=== PATIENT | male | born 1985 | race Caucasian/White ===

== ENCOUNTER 2016-07-02 06:36 | Inpatient (IN) | payer MEDICAID, OTHER ==
[~2016-07-02] VITALS: Ht 175.3 cm; Wt 78.9 kg
[2016-07-02] MEDS ORDERED: ESCI10TA2 PO (08:49)
[2016-07-02] MEDS ORDERED: OLAN5TAB PO (08:49)
[2016-07-02] MEDS ORDERED: PROP1TAB29 PO (08:49)
[2016-07-02] MEDS ORDERED: DEPA500T2 PO (08:49)
[2016-07-02] MEDS: NICOTINE 21MG/24HR 1 EA TRANSDERMAL TD SCH (09:00)
--- NOTE | 2016-07-02 10:57 | EDDOCDS ---
Physician Documentation [facility] Name: Marshal Anderson Age: 30 yrs Sex: Male : 1985 Arrival Date: 07/02/2016 Time: 06:36 Bed BHU1 Private MD: Unknown, Family Dr Disposition: 07/02/16 09:55 Hospitalization ordered by Andressa Garcia for Inpatient Admission. Preliminary diagnosis is Bipolar disorder. - Bed requested for Admit. - Status is Inpatient Admission. js13 - Condition is Stable. - Problem is an ongoing problem. - Symptoms are unchanged. Historical: - Allergies: no known allergies; - Home Meds: 1. propranolol 20 mg Oral tab 1 tab daily 2. Depakote 500 mg Oral TbEC 1 tab 2 times per day 3. escitalopram oxalate 10 mg oral tab 1 tab once daily 4. olanzapine 5 mg oral tab 1 tab once daily - PMHx: Hypertension; Anxiety Disorder; Bipolar disorder; - PSHx: none; - Social history: Smoking status: Patient uses tobacco products, current every day smoker. No barriers to communication noted, The patient speaks fluent Italian. - Family history: Not pertinent. - : The pt / caregiver states he / she is not on anticoagulants. Home medication list is obtained from the facility MAR. - Exposure Risk Screening:: None identified. Vital Signs: 07/02 06:45 BP 122 / 59; Pulse 72; Resp 16; Temp 96.9(T); Pulse Ox 98% on R/A; Weight 81.65 kg / rw1 180.01 lbs (R); Height 5 ft. 9 in. (175.26 cm); Pain 0/10; 10:42 BP 112 / 56; Pulse 83; Resp 17; Temp 97.2(T); Pulse Ox 97% on R/A; pjf 06:45 Body Mass Index 26.58 (81.65 kg, 175.26 cm) rw1 MDM: 07:32 DEPAKOTE Ordered. EDMS 07:32 TSH w/o Free T4 Ordered. EDMS 07:33 BED REQUEST+ADM ordered. EDMS 07:51 REGULAR DIET PLASTIC MCADAMS+DIET ordered. EDMS 08:11 Financial registration complete. lg 09:01 DEPAKOTE Reviewed. sd1 09:01 TSH w/o Free T4 Reviewed. sd1 09:07 [facility] Payment Agreement was scanned into [employer] and attached to record. lg 09:49 Admit to IMHU: ordered. EDMS 10:46 [facility] Legal paperwork was scanned into [employer] and attached to record. cs Signatures: Dispatcher MedHost EDPatricia Meadows MD MD sd1 Patrick Brand, PSA PSA cs Marlon Burch, Reg Reg lg Rhiannon MunizRN RN pml Anu Joy RN RN js13 Osbaldo Grady RN RN mgs The chart was reviewed and I authenticate all verbal orders and agree with the evaluation and treatment provided.Attachments: 09:07 [facility] Payment Agreement lg MTDD
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
[2016-07-02 11:11] VITALS: BP 114/58
[2016-07-02] MEDS ORDERED: MOM 30ML SUSPENSION UDC PO PRN (12:30)
[2016-07-02] MEDS ORDERED: MAALOX 30 ML SUSP *UDC PO PRN (12:30)
[2016-07-02] MEDS: LORazepam 1 MG TAB PO PRN ×2 (15:25→21:46)
[2016-07-02] MEDS: ACETAMINOPHEN TAB 650MG DOSE (2X325MG) PO PRN (15:25)
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
[2016-07-03 06:01] VITALS: BP 117/64
[2016-07-03] MEDS: NICOTINE 21MG/24HR 1 EA TRANSDERMAL TD SCH (08:38)
[2016-07-03] MEDS: LORazepam 1 MG TAB PO PRN ×2 (08:39→16:40)
[2016-07-03 18:00] VITALS: BP 104/60
[2016-07-04 06:12] VITALS: BP 135/64
[2016-07-04] MEDS: NICOTINE 21MG/24HR 1 EA TRANSDERMAL TD SCH (08:57)
--- NOTE | 2016-07-04 08:57 | IPN ---
DATE: 07/03/2016 The patient today states, "I'm pretty good." He denies feeling depressed. He says that he slept good. He has been taking his medications. He continues to minimize the events prior to his hospitalization. MENTAL STATUS EXAMINATION: The patient is alert and oriented times three. Eye contact is fair. He is verbally spontaneous. No formal thought disorder noted. He says his mood is good. His affect is flat. I did not elicit any psychotic symptoms. He is denying suicidal or homicidal ideations. Concentration fair. Memory is intact . Insight and judgment is poor. Other specified, bipolar disorder. Rule out alcohol use disorder. Rule out cannabis use disorder. TREATMENT PLAN: At this point, we will further observe and monitor this patient for any further homicidal ideations, which he is denying. Will monitor him for any possible suicidal ideations, which he is denying. We will monitor the patient's mood to make sure that he remains stable. As I said, he begun to comply with his medications now, which we will continue and adjust as indicated. FRANCIS
[2016-07-04] MEDS: LORazepam 1 MG TAB PO PRN ×2 (08:58→16:31)
--- NOTE | 2016-07-04 11:57 | EDDOCDS ---
Physician Documentation [facility] Name: Marshal Anderson Age: 30 yrs Sex: Male : 1985 Arrival Date: 07/02/2016 Time: 06:36 Bed BHU1 Private MD: Unknown, Family Dr Disposition: 07/02/16 09:55 Hospitalization ordered by Andressa Garcia for Inpatient Admission. Preliminary diagnosis is Bipolar disorder. - Bed requested for Admit. - Status is Inpatient Admission. js13 - Condition is Stable. - Problem is an ongoing problem. - Symptoms are unchanged. Historical: - Allergies: no known allergies; - Home Meds: 1. propranolol 20 mg Oral tab 1 tab daily 2. Depakote 500 mg Oral TbEC 1 tab 2 times per day 3. escitalopram oxalate 10 mg oral tab 1 tab once daily 4. olanzapine 5 mg oral tab 1 tab once daily - PMHx: Hypertension; Anxiety Disorder; Bipolar disorder; - PSHx: none; - Social history: Smoking status: Patient uses tobacco products, current every day smoker. No barriers to communication noted, The patient speaks fluent Qatari. - Family history: Not pertinent. - : The pt / caregiver states he / she is not on anticoagulants. Home medication list is obtained from the facility MAR. - Exposure Risk Screening:: None identified. Vital Signs: 07/02 06:45 BP 122 / 59; Pulse 72; Resp 16; Temp 96.9(T); Pulse Ox 98% on R/A; Weight 81.65 kg / rw1 180.01 lbs (R); Height 5 ft. 9 in. (175.26 cm); Pain 0/10; 10:42 BP 112 / 56; Pulse 83; Resp 17; Temp 97.2(T); Pulse Ox 97% on R/A; pjf 06:45 Body Mass Index 26.58 (81.65 kg, 175.26 cm) rw1 MDM: 07:32 DEPAKOTE Ordered. EDMS 07:32 TSH w/o Free T4 Ordered. EDMS 07:33 BED REQUEST+ADM ordered. EDMS 07:51 REGULAR DIET PLASTIC MCADAMS+DIET ordered. EDMS 08:11 Financial registration complete. lg 09:01 DEPAKOTE Reviewed. sd1 09:01 TSH w/o Free T4 Reviewed. sd1 09:07 [facility] Payment Agreement was scanned into [employer] and attached to record. lg 09:49 Admit to IMHU: ordered. EDMS 10:46 [facility] Legal paperwork was scanned into [employer] and attached to record. cs 14:27 T-Sheet-- Draft Copy was scanned into [employer] and attached to record. gb Signatures: Dispatcher [employer] EDPatricia Meadows MD MD sd1 Patrick Brand, PSA PSA cs Maile Allan, Reg Reg gb Marlon Burch, Reg Reg lg Rhiannon Muniz,RN RN Anu HodgsonRN RN js13 Osbaldo GradyRN RN mgs The chart was reviewed and I authenticate all verbal orders and agree with the evaluation and treatment provided.Attachments: 09:07 [facility] Payment Agreement lg 14:27 T-Sheet-- Draft Copy gb Chart Complete MTDD
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
--- NOTE | 2016-07-04 11:57 | EDDOCDS ---
Physician Documentation [facility] Name: Marshal Anderson Age: 30 yrs Sex: Male : 1985 Arrival Date: 07/02/2016 Time: 06:36 Bed BHU1 Private MD: Unknown, Family Dr Disposition: 07/02/16 09:55 Hospitalization ordered by Andressa Garcia for Inpatient Admission. Preliminary diagnosis is Bipolar disorder. - Bed requested for Admit. - Status is Inpatient Admission. js13 - Condition is Stable. - Problem is an ongoing problem. - Symptoms are unchanged. Historical: - Allergies: no known allergies; - Home Meds: 1. propranolol 20 mg Oral tab 1 tab daily 2. Depakote 500 mg Oral TbEC 1 tab 2 times per day 3. escitalopram oxalate 10 mg oral tab 1 tab once daily 4. olanzapine 5 mg oral tab 1 tab once daily - PMHx: Hypertension; Anxiety Disorder; Bipolar disorder; - PSHx: none; - Social history: Smoking status: Patient uses tobacco products, current every day smoker. No barriers to communication noted, The patient speaks fluent New Zealander. - Family history: Not pertinent. - : The pt / caregiver states he / she is not on anticoagulants. Home medication list is obtained from the facility MAR. - Exposure Risk Screening:: None identified. Vital Signs: 07/02 06:45 BP 122 / 59; Pulse 72; Resp 16; Temp 96.9(T); Pulse Ox 98% on R/A; Weight 81.65 kg / rw1 180.01 lbs (R); Height 5 ft. 9 in. (175.26 cm); Pain 0/10; 10:42 BP 112 / 56; Pulse 83; Resp 17; Temp 97.2(T); Pulse Ox 97% on R/A; pjf 06:45 Body Mass Index 26.58 (81.65 kg, 175.26 cm) rw1 MDM: 07:32 DEPAKOTE Ordered. EDMS 07:32 TSH w/o Free T4 Ordered. EDMS 07:33 BED REQUEST+ADM ordered. EDMS 07:51 REGULAR DIET PLASTIC MCADAMS+DIET ordered. EDMS 08:11 Financial registration complete. lg 09:01 DEPAKOTE Reviewed. sd1 09:01 TSH w/o Free T4 Reviewed. sd1 09:07 [facility] Payment Agreement was scanned into MEDHOST and attached to record. lg 09:49 Admit to IMHU: ordered. EDMS 10:46 [facility] Legal paperwork was scanned into [employer] and attached to record. cs 14:27 T-Sheet-- Draft Copy was scanned into [employer] and attached to record. gb Signatures: Dispatcher [employer] EDPatricia Meadows MD MD sd1 Patrick Brand, PSA PSA cs Maile Allan, Reg Reg gb Marlon Burch, Reg Reg lg Rhiannon Muniz,RN RN Anu HodgsonRN RN js13 Osbaldo GradyRN RN mgs The chart was reviewed and I authenticate all verbal orders and agree with the evaluation and treatment provided.Attachments: 09:07 [facility] Payment Agreement lg 14:27 T-Sheet-- Draft Copy gb Chart Complete MTDD
[2016-07-04 18:00] VITALS: BP 119/59
[2016-07-04] MEDS: ACETAMINOPHEN TAB 650MG DOSE (2X325MG) PO PRN (21:54)
--- NOTE | 2016-07-05 02:14 | IPN ---
DATE: 07/04/2016 SUBJECTIVE: The patient today states, "I am doing good." He says he slept well. He has no complaints. MENTAL STATUS EXAMINATION: This patient is alert, and oriented times three. Eye contact is fair. Psychomotor activity is normal. There is no formal thought disorder. He said his mood is good. His affect is flat. He is not psychotic. He denies suicidal or homicidal ideation. Concentration is fair. Memory intact. Insight and judgment is fair. DIAGNOSIS: 1. Bipolar disorder. 2. Rule out cannabis use disorder. 3. Rule out major depressive disorder. TREATMENT PLAN: At this point, we will continue to monitor the patient for continued stabilization and elevation of mood, and we will continue to monitor for resolution of any suicidal ideations.
[2016-07-05 06:23] VITALS: BP 105/57
[2016-07-05] MEDS: NICOTINE 21MG/24HR 1 EA TRANSDERMAL TD SCH (08:19)
--- NOTE | 2016-07-05 13:09 | EDDOCDS ---
Physician Documentation [facility] Name: Marshal Anderson Age: 30 yrs Sex: Male : 1985 Arrival Date: 07/02/2016 Time: 06:36 Bed BHU1 Private MD: Unknown, Family Dr Disposition: 07/02/16 09:55 Hospitalization ordered by Andressa Garcia for Inpatient Admission. Preliminary diagnosis is Bipolar disorder. - Bed requested for Admit. - Status is Inpatient Admission. js13 - Condition is Stable. - Problem is an ongoing problem. - Symptoms are unchanged. Historical: - Allergies: no known allergies; - Home Meds: 1. propranolol 20 mg Oral tab 1 tab daily 2. Depakote 500 mg Oral TbEC 1 tab 2 times per day 3. escitalopram oxalate 10 mg oral tab 1 tab once daily 4. olanzapine 5 mg oral tab 1 tab once daily - PMHx: Hypertension; Anxiety Disorder; Bipolar disorder; - PSHx: none; - Social history: Smoking status: Patient uses tobacco products, current every day smoker. No barriers to communication noted, The patient speaks fluent Belizean. - Family history: Not pertinent. - : The pt / caregiver states he / she is not on anticoagulants. Home medication list is obtained from the facility MAR. - Exposure Risk Screening:: None identified. Vital Signs: 07/02 06:45 BP 122 / 59; Pulse 72; Resp 16; Temp 96.9(T); Pulse Ox 98% on R/A; Weight 81.65 kg / rw1 180.01 lbs (R); Height 5 ft. 9 in. (175.26 cm); Pain 0/10; 10:42 BP 112 / 56; Pulse 83; Resp 17; Temp 97.2(T); Pulse Ox 97% on R/A; pjf 06:45 Body Mass Index 26.58 (81.65 kg, 175.26 cm) rw1 MDM: 07:32 DEPAKOTE Ordered. EDMS 07:32 TSH w/o Free T4 Ordered. EDMS 07:33 BED REQUEST+ADM ordered. EDMS 07:51 REGULAR DIET PLASTIC MCADAMS+DIET ordered. EDMS 08:11 Financial registration complete. lg 09:01 DEPAKOTE Reviewed. sd1 09:01 TSH w/o Free T4 Reviewed. sd1 09:07 [facility] Payment Agreement was scanned into [employer] and attached to record. lg 09:49 Admit to IMHU: ordered. EDMS 10:46 [facility] Legal paperwork was scanned into [employer] and attached to record. cs 14:27 T-Sheet-- Draft Copy was scanned into [employer] and attached to record. gb Signatures: Dispatcher [employer] EDPatricia Meadows MD MD sd1 Patrick Brand, PSA PSA cs Maile Allan, Reg Reg gb Marlon Burch, Reg Reg lg Rhiannon Muniz,RN RN Anu HodgsonRN RN js13 Osbaldo GradyRN RN mgs The chart was reviewed and I authenticate all verbal orders and agree with the evaluation and treatment provided.Attachments: 09:07 [facility] Payment Agreement lg 14:27 T-Sheet-- Draft Copy gb MTDD
--- NOTE | 2016-07-05 13:09 | EDDOCDS ---
Physician Documentation [facility] Name: Marshal Anderson Age: 30 yrs Sex: Male : 1985 Arrival Date: 07/02/2016 Time: 06:36 Bed BHU1 Private MD: Unknown, Family Dr Disposition: 07/02/16 09:55 Hospitalization ordered by Andressa Garcia for Inpatient Admission. Preliminary diagnosis is Bipolar disorder. - Bed requested for Admit. - Status is Inpatient Admission. js13 - Condition is Stable. - Problem is an ongoing problem. - Symptoms are unchanged. Historical: - Allergies: no known allergies; - Home Meds: 1. propranolol 20 mg Oral tab 1 tab daily 2. Depakote 500 mg Oral TbEC 1 tab 2 times per day 3. escitalopram oxalate 10 mg oral tab 1 tab once daily 4. olanzapine 5 mg oral tab 1 tab once daily - PMHx: Hypertension; Anxiety Disorder; Bipolar disorder; - PSHx: none; - Social history: Smoking status: Patient uses tobacco products, current every day smoker. No barriers to communication noted, The patient speaks fluent Indian. - Family history: Not pertinent. - : The pt / caregiver states he / she is not on anticoagulants. Home medication list is obtained from the facility MAR. - Exposure Risk Screening:: None identified. Vital Signs: 07/02 06:45 BP 122 / 59; Pulse 72; Resp 16; Temp 96.9(T); Pulse Ox 98% on R/A; Weight 81.65 kg / rw1 180.01 lbs (R); Height 5 ft. 9 in. (175.26 cm); Pain 0/10; 10:42 BP 112 / 56; Pulse 83; Resp 17; Temp 97.2(T); Pulse Ox 97% on R/A; pjf 06:45 Body Mass Index 26.58 (81.65 kg, 175.26 cm) rw1 MDM: 07:32 DEPAKOTE Ordered. EDMS 07:32 TSH w/o Free T4 Ordered. EDMS 07:33 BED REQUEST+ADM ordered. EDMS 07:51 REGULAR DIET PLASTIC MCADAMS+DIET ordered. EDMS 08:11 Financial registration complete. lg 09:01 DEPAKOTE Reviewed. sd1 09:01 TSH w/o Free T4 Reviewed. sd1 09:07 [facility] Payment Agreement was scanned into [employer] and attached to record. lg 09:49 Admit to IMHU: ordered. EDMS 10:46 [facility] Legal paperwork was scanned into [employer] and attached to record. cs 14:27 T-Sheet-- Draft Copy was scanned into [employer] system and attached to record. gb Signatures: Dispatcher [employer] EDPatricia Meadows MD MD sd1 Patrick Brand, PSA PSA cs Maile Allan, Reg Reg gb Marlon Burch, Reg Reg lg Rhiannon Muniz,RN RN Anu HodgsonRN RN js13 Osbaldo GradyRN RN mgs The chart was reviewed and I authenticate all verbal orders and agree with the evaluation and treatment provided.Attachments: 09:07 [facility] Payment Agreement lg 14:27 T-Sheet-- Draft Copy gb MTDD
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
--- NOTE | 2016-07-05 13:11 | EDDOCDS ---
Physician Documentation [facility] Name: Marshal Anderson Age: 30 yrs Sex: Male : 1985 Arrival Date: 07/02/2016 Time: 06:36 Bed BHU1 Private MD: Unknown, Family Dr Disposition: 07/02/16 09:55 Hospitalization ordered by Andressa Garcia for Inpatient Admission. Preliminary diagnosis is Bipolar disorder. - Bed requested for Admit. - Status is Inpatient Admission. js13 - Condition is Stable. - Problem is an ongoing problem. - Symptoms are unchanged. Historical: - Allergies: no known allergies; - Home Meds: 1. propranolol 20 mg Oral tab 1 tab daily 2. Depakote 500 mg Oral TbEC 1 tab 2 times per day 3. escitalopram oxalate 10 mg oral tab 1 tab once daily 4. olanzapine 5 mg oral tab 1 tab once daily - PMHx: Hypertension; Anxiety Disorder; Bipolar disorder; - PSHx: none; - Social history: Smoking status: Patient uses tobacco products, current every day smoker. No barriers to communication noted, The patient speaks fluent Pakistani. - Family history: Not pertinent. - : The pt / caregiver states he / she is not on anticoagulants. Home medication list is obtained from the facility MAR. - Exposure Risk Screening:: None identified. Vital Signs: 07/02 06:45 BP 122 / 59; Pulse 72; Resp 16; Temp 96.9(T); Pulse Ox 98% on R/A; Weight 81.65 kg / rw1 180.01 lbs (R); Height 5 ft. 9 in. (175.26 cm); Pain 0/10; 10:42 BP 112 / 56; Pulse 83; Resp 17; Temp 97.2(T); Pulse Ox 97% on R/A; pjf 06:45 Body Mass Index 26.58 (81.65 kg, 175.26 cm) rw1 MDM: 07:32 DEPAKOTE Ordered. EDMS 07:32 TSH w/o Free T4 Ordered. EDMS 07:33 BED REQUEST+ADM ordered. EDMS 07:51 REGULAR DIET PLASTIC MCADAMS+DIET ordered. EDMS 08:11 Financial registration complete. lg 09:01 DEPAKOTE Reviewed. sd1 09:01 TSH w/o Free T4 Reviewed. sd1 09:07 [facility] Payment Agreement was scanned into [employer] and attached to record. lg 09:49 Admit to IMHU: ordered. EDMS 10:46 [facility] Legal paperwork was scanned into [employer] and attached to record. cs 14:27 T-Sheet-- Draft Copy was scanned into [employer] and attached to record. gb Signatures: Dispatcher [employer] EDPatricia Meadows MD MD sd1 Patrick Brand, PSA PSA cs Maile Allan, Reg Reg gb Marlon Burch, Reg Reg lg Rhiannon Muniz,RN RN Anu HodgsonRN RN js13 Osbaldo GradyRN RN mgs The chart was reviewed and I authenticate all verbal orders and agree with the evaluation and treatment provided.Attachments: 09:07 [facility] Payment Agreement lg 14:27 T-Sheet-- Draft Copy gb Chart Complete MTDD
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
--- NOTE | 2016-07-05 13:11 | EDDOCDS ---
Physician Documentation [facility] Name: Marshal Anderson Age: 30 yrs Sex: Male : 1985 Arrival Date: 07/02/2016 Time: 06:36 Bed [facility] Private MD: Unknown, Family Dr Disposition: 07/02/16 09:55 Hospitalization ordered by Andressa Garcia for Inpatient Admission. Preliminary diagnosis is Bipolar disorder. - Bed requested for Admit. - Status is Inpatient Admission. js13 - Condition is Stable. - Problem is an ongoing problem. - Symptoms are unchanged. Historical: - Allergies: no known allergies; - Home Meds: 1. propranolol 20 mg Oral tab 1 tab daily 2. Depakote 500 mg Oral TbEC 1 tab 2 times per day 3. escitalopram oxalate 10 mg oral tab 1 tab once daily 4. olanzapine 5 mg oral tab 1 tab once daily - PMHx: Hypertension; Anxiety Disorder; Bipolar disorder; - PSHx: none; - Social history: Smoking status: Patient uses tobacco products, current every day smoker. No barriers to communication noted, The patient speaks fluent [place]. - Family history: Not pertinent. - : The pt / caregiver states he / she is not on anticoagulants. Home medication list is obtained from the facility MAR. - Exposure Risk Screening:: None identified. Vital Signs: 07/02 06:45 BP 122 / 59; Pulse 72; Resp 16; Temp 96.9(T); Pulse Ox 98% on R/A; Weight 81.65 kg / rw1 180.01 lbs (R); Height 5 ft. 9 in. (175.26 cm); Pain 0/10; 10:42 BP 112 / 56; Pulse 83; Resp 17; Temp 97.2(T); Pulse Ox 97% on R/A; pjf 06:45 Body Mass Index 26.58 (81.65 kg, 175.26 cm) rw1 MDM: 07:32 DEPAKOTE Ordered. EDMS 07:32 TSH w/o Free T4 Ordered. EDMS 07:33 BED REQUEST+ADM ordered. EDMS 07:51 REGULAR DIET PLASTIC MCADAMS+DIET ordered. EDMS 08:11 Financial registration complete. lg 09:01 DEPAKOTE Reviewed. sd1 09:01 TSH w/o Free T4 Reviewed. sd1 09:07 [facility] Payment Agreement was scanned into [employer] and attached to record. lg 09:49 Admit to [facility]: ordered. EDMS 10:46 [facility] Legal paperwork was scanned into [employer] and attached to record. cs 14:27 T-Sheet-- Draft Copy was scanned into [employer] and attached to record. gb Signatures: Dispatcher [employer] EDPatricia Meadows MD MD sd1 Patrick Brand, PSA PSA cs Maile Allan, Reg Reg gb Marlon Burch, Reg Reg lg Rhiannon Muniz,RN RN Anu HodgsonRN RN js13 Osbaldo GradyRN RN mgs The chart was reviewed and I authenticate all verbal orders and agree with the evaluation and treatment provided.Attachments: 09:07 [facility] Payment Agreement lg 14:27 T-Sheet-- Draft Copy gb Chart Complete MTDD
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
--- NOTE | 2016-07-05 14:34 | EDDOCDS ---
Physician Documentation [facility] Name: Marshal Anderson Age: 30 yrs Sex: Male : 1985 Arrival Date: 07/02/2016 Time: 06:36 Bed [facility] Private MD: Unknown, Family Dr Disposition: 07/02/16 09:55 Hospitalization ordered by Andressa Garcia for Inpatient Admission. Preliminary diagnosis is Bipolar disorder. - Bed requested for Admit. - Status is Inpatient Admission. js13 - Condition is Stable. - Problem is an ongoing problem. - Symptoms are unchanged. Historical: - Allergies: no known allergies; - Home Meds: 1. propranolol 20 mg Oral tab 1 tab daily 2. Depakote 500 mg Oral TbEC 1 tab 2 times per day 3. escitalopram oxalate 10 mg oral tab 1 tab once daily 4. olanzapine 5 mg oral tab 1 tab once daily - PMHx: Hypertension; Anxiety Disorder; Bipolar disorder; - PSHx: none; - Social history: Smoking status: Patient uses tobacco products, current every day smoker. No barriers to communication noted, The patient speaks fluent Cook Islander. - Family history: Not pertinent. - : The pt / caregiver states he / she is not on anticoagulants. Home medication list is obtained from the facility MAR. - Exposure Risk Screening:: None identified. Vital Signs: 07/02 06:45 BP 122 / 59; Pulse 72; Resp 16; Temp 96.9(T); Pulse Ox 98% on R/A; Weight 81.65 kg / rw1 180.01 lbs (R); Height 5 ft. 9 in. (175.26 cm); Pain 0/10; 10:42 BP 112 / 56; Pulse 83; Resp 17; Temp 97.2(T); Pulse Ox 97% on R/A; pjf 06:45 Body Mass Index 26.58 (81.65 kg, 175.26 cm) rw1 MDM: 07:32 DEPAKOTE Ordered. EDMS 07:32 TSH w/o Free T4 Ordered. EDMS 07:33 BED REQUEST+ADM ordered. EDMS 07:51 REGULAR DIET PLASTIC MCADAMS+DIET ordered. EDMS 08:11 Financial registration complete. lg 09:01 DEPAKOTE Reviewed. sd1 09:01 TSH w/o Free T4 Reviewed. sd1 09:07 [facility] Payment Agreement was scanned into [employer] and attached to record. lg 09:49 Admit to IMHU: ordered. EDMS 10:46 MHE Legal paperwork was scanned into [employer] and attached to record. cs 14:27 T-Sheet-- Draft Copy was scanned into [email or web address] and attached to record. gb Signatures: Dispatcher [employer] EDPatricia Meadows MD MD sd1 Patrick Brand, PSA PSA cs Maile Allan, Reg Reg gb Marlon Burch, Reg Reg lg Rhiannon Muniz,RN RN Anu HodgsonRN RN js13 Osbaldo GradyRN RN mgs The chart was reviewed and I authenticate all verbal orders and agree with the evaluation and treatment provided.Attachments: 09:07 [facility] Payment Agreement lg 14:27 T-Sheet-- Draft Copy gb Chart Complete MTDD
--- NOTE | 2016-07-05 14:34 | EDDOCDS ---
Physician Documentation [facility] Name: Marshal Anderson Age: 30 yrs Sex: Male : 1985 Arrival Date: 07/02/2016 Time: 06:36 Bed [facility]1 Private MD: Unknown, Family Dr Disposition: 07/02/16 09:55 Hospitalization ordered by Andressa aGrcia for Inpatient Admission. Preliminary diagnosis is Bipolar disorder. - Bed requested for Admit. - Status is Inpatient Admission. js13 - Condition is Stable. - Problem is an ongoing problem. - Symptoms are unchanged. Historical: - Allergies: no known allergies; - Home Meds: 1. propranolol 20 mg Oral tab 1 tab daily 2. Depakote 500 mg Oral TbEC 1 tab 2 times per day 3. escitalopram oxalate 10 mg oral tab 1 tab once daily 4. olanzapine 5 mg oral tab 1 tab once daily - PMHx: Hypertension; Anxiety Disorder; Bipolar disorder; - PSHx: none; - Social history: Smoking status: Patient uses tobacco products, current every day smoker. No barriers to communication noted, The patient speaks fluent Central African. - Family history: Not pertinent. - : The pt / caregiver states he / she is not on anticoagulants. Home medication list is obtained from the facility MAR. - Exposure Risk Screening:: None identified. Vital Signs: 07/02 06:45 BP 122 / 59; Pulse 72; Resp 16; Temp 96.9(T); Pulse Ox 98% on R/A; Weight 81.65 kg / rw1 180.01 lbs (R); Height 5 ft. 9 in. (175.26 cm); Pain 0/10; 10:42 BP 112 / 56; Pulse 83; Resp 17; Temp 97.2(T); Pulse Ox 97% on R/A; pjf 06:45 Body Mass Index 26.58 (81.65 kg, 175.26 cm) rw1 MDM: 07:32 DEPAKOTE Ordered. EDMS 07:32 TSH w/o Free T4 Ordered. EDMS 07:33 BED REQUEST+ADM ordered. EDMS 07:51 REGULAR DIET PLASTIC MCADAMS+DIET ordered. EDMS 08:11 Financial registration complete. lg 09:01 DEPAKOTE Reviewed. sd1 09:01 TSH w/o Free T4 Reviewed. sd1 09:07 [facility] Payment Agreement was scanned into [employer] and attached to record. lg 09:49 Admit to IMHU: ordered. EDMS 10:46 MHE Legal paperwork was scanned into [employer] and attached to record. cs 14:27 T-Sheet-- Draft Copy was scanned into [email or web address] and attached to record. gb Signatures: Dispatcher [employer] EDPatricia Meadows MD MD sd1 Patrick Brand, PSA PSA cs Maile Allan, Reg Reg gb Marlon Burch, Reg Reg lg Rhiannon Muniz,RN RN Anu HodgsonRN RN js13 Osbaldo GradyRN RN mgs The chart was reviewed and I authenticate all verbal orders and agree with the evaluation and treatment provided.Attachments: 09:07 [facility] Payment Agreement lg 14:27 T-Sheet-- Draft Copy gb Chart Complete MTDD
[2016-07-05] MEDS: hydrOXYzine 50 MG TAB PO PRN (16:05)
[2016-07-05 18:00] VITALS: BP 113/57
--- NOTE | 2016-07-05 19:00 | HPE ---
DATE OF ADMISSION: 07/04/2015 HISTORY OF PRESENT ILLNESS: Please refer to psychiatric history and evaluation for further details on this admission. This examination and history is performed is intended for medical issues, which may need treatment, followup or consultation on this 30-year-old male who is transferred from [facility] with the risk of homicidal ideation. SOCIAL HISTORY: He lives in a community house. He smokes 1-1/2 to 3 packs of cigarettes per day. Recreational drug use none. 30-single, rarely drinks alcohol. He lives in a community residence in [place]. PAST SURGICAL HISTORY: 1. Bilateral Lasik eye vision correction surgery. 2. Hypertension. ALLERGIES: No known allergies. CURRENT MEDICATIONS: - Lexapro 10 mg by mouth daily - Depakote ER 500mg by mouth twice a day - Zyprexa 5 mg by mouth nightly - propranolol 20 mg by mouth nightly REVIEW OF SYSTEMS: Ten system review was done and was negative. PHYSICAL EXAMINATION: VITAL SIGNS: Height 59 inches, weight 78.4 kilograms, blood pressure 104/60, pulse 80, temperature 97.1. GENERAL: The patient is awake, alert and oriented times three. HEENT: Pupils equal, round, reactive to light. Extraocular muscles intact. Conjunctiva clear. No facial asymmetry. Pharynx, tongue and gum is pink and moist. Tongue is midline. Bilateral peanuts on the ears. Small holes from where he had extenders, well healed. NECK: Neck is supple without lymphadenopathy. No thyromegaly. No goiter. CHEST: Clear to auscultation without wheeze or retraction. HEART: Heart is regular. ABDOMEN: Benign. Bowel sounds positive. GENITOURINARY ()/RECTAL: Not done. EXTREMITIES: No clubbing, cyanosis, and edema. Peripheral pulses are equal and palpable bilaterally. SKIN: Warm and dry. Two tattoos, one on the neck, two on the left arm. IMPRESSION AND PLAN: Psychiatric plan per psychiatry. No acute medical issues.
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
[2016-07-06 06:26] VITALS: BP 82/47
[2016-07-06] MEDS: NICOTINE 21MG/24HR 1 EA TRANSDERMAL TD SCH (08:35)
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
[2016-07-06] MEDS: hydrOXYzine 50 MG TAB PO PRN ×2 (16:24→22:44)
[2016-07-06 18:00] VITALS: BP 119/66
[2016-07-07 06:31] VITALS: BP 108/58
[2016-07-07] MEDS: NICOTINE 21MG/24HR 1 EA TRANSDERMAL TD SCH (08:38)
--- NOTE | 2016-07-07 08:48 | IPNPDOC ---
Assessment/Plan Date Seen The patient was seen on 07/07/16. Problems Problems: (1) Hand pain, right Status: Acute Problem Text: * Patient states he punched a wall with his right hand. * Declines any imaging at this time adamantly. * Declining pain. * Apply ice as needed or Tylenol as needed. * Apply bacitracin to area of abrasion with dry dressing if needed. * Monitor. (2) STI (sexually transmitted infection) Status: Acute Problem Text: * Apparently in the past he has been advised of history of herpes. * He denies any current outbreak. * He denies any concern currently for HIV or hepatitis and declined screening at this time. * Declines any concern or declines to be screened for STI at this time. Plan / VTE VTE Prophylaxis Ordered?: No (ambulatory) Subjective Review of Systems CC/HPI The patient is a 30-year-old male admitted with a reason for visit of Unspecified Bipolar Disorder. Events since last encounter Requested to evaluate patient related to possible request for HIV screening. Additionally the patient apparently punched a wall yesterday afternoon with his right hand. The patient is denying pain in the right hand or right wrist. ENT: Denies: Dysphagia, Ear Pain, Head Aches Pulmonary: Denies: Cough, Dyspnea Cardiovascular: Denies: Chest Pain, Lt Headedness, Orthopnea, Palpitations, Paroxysmal Noc. Dyspnea Musculoskeletal: Denies: Back Pain, Joint Pain, Muscle Pain, Neck Pain, Spasms Objective Physical Examination General Exam: Positive: Alert Eye Exam: Positive: PERRLA Chest Exam: Positive: Clear to auscultation, Normal air movement Heart Exam: Positive: Normal S1, Normal S2, Rate Normal, Regular Rhythm, Negative: Murmurs, Rubs Abdomen Exam: Positive: Normal bowel sounds, Soft, Negative: Hepatospenomegaly, Tenderness Extremity Exam: Positive: Normal pulses, Tenderness (there is no tenderness with palpation of the right hand or right wrist area there is an abrasion noted to the right fourth and fifth MCP area. There is no bleeding or drainage noted at this time. No ecchymosis no swelling.), Negative: Clubbing, Cyanosis, Edema Vital Signs/I&O Vital Signs Date Time Temp Pulse Resp B/P Pulse Ox O2 Delivery O2 Flow Rate FiO2 07/07/16 06:31 97.6 67 16 108/58 07/02/16 11:11 Room Air Coronado,Leyda PA Jul 07, 2016 08:48
[2016-07-07] MEDS: BACITRACIN OINT 30GM TOP SCH ×2 (13:14→21:00)
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
[2016-07-07 18:00] VITALS: BP 103/60
[2016-07-07] MEDS: DIVALPROEX 500MG *ER* TAB PO SCH (21:04)
[2016-07-08 06:37] VITALS: BP 131/68
[2016-07-08] MEDS: NICOTINE 21MG/24HR 1 EA TRANSDERMAL TD SCH (09:49)
[2016-07-08] MEDS: BACITRACIN OINT 30GM TOP SCH ×2 (09:50→21:00)
[2016-07-08] MEDS: DIVALPROEX 500MG *ER* TAB PO SCH ×2 (09:50→22:22)
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
[2016-07-08 18:00] VITALS: BP 90/64
[2016-07-09 06:33] VITALS: BP 117/57
[2016-07-09] MEDS: ACETAMINOPHEN TAB 650MG DOSE (2X325MG) PO PRN ×2 (08:49→16:03)
[2016-07-09] MEDS: DIVALPROEX 500MG *ER* TAB PO SCH ×2 (08:49→20:51)
[2016-07-09] MEDS: BACITRACIN OINT 30GM TOP SCH ×2 (08:50→20:51)
[2016-07-09] MEDS: NICOTINE 21MG/24HR 1 EA TRANSDERMAL TD SCH (08:50)
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
[2016-07-09 18:08] VITALS: BP 107/60
[2016-07-09] MEDS: CEPACOL LOZENGE PO PRN (20:51)
[2016-07-09] MEDS: FLUTICASONE PROP 0.05% NASAL SPRAY 16 GM (FLONASE) SCH (21:55)
[2016-07-10 06:40] VITALS: BP 99/55
[2016-07-10] MEDS: NICOTINE 21MG/24HR 1 EA TRANSDERMAL TD SCH (08:45)
[2016-07-10] MEDS: DIVALPROEX 500MG *ER* TAB PO SCH ×2 (08:45→20:54)
[2016-07-10] MEDS: FLUTICASONE PROP 0.05% NASAL SPRAY 16 GM (FLONASE) SCH ×2 (08:46→20:55)
[2016-07-10] MEDS: BACITRACIN OINT 30GM TOP SCH ×2 (08:46→20:54)
--- NOTE | 2016-07-10 14:15 | IPN ---
DATE OF SERVICE: 07/09/2016 A 30-year-old male on the inpatient mental health unit. He had a complaint of nasal stuffiness, slight scratchy throat. Says he has had it for 2-3 days with no improvement. Denies any fever or chills. No sputum production. OBJECTIVE: Blood pressure 107/60, pulse 73, respirations 76, temperature 96.7. The patient is alert and oriented times three. Pupils equal and reactive to light. Extraocular muscles intact. Cornea and sclerae clear. Conjunctivae normal. No facial asymmetry. Tympanic membranes pearly bilateral. Pharynx, tongue, and gums pink and moist. Tongue is midline. NECK: Is supple without lymphadenopathy. No thyromegaly. No goiter. CHEST: Clear to auscultation. HEART: Is regular. SKIN: Warm and dry. Turgor good. IMPRESSION: Viral cold. Cepacol throat lozenge is already ordered. Fluticasone nasal spray one spray each nostril twice a day. Increase clear liquids by mouth. Notify staff if no improvement.
[2016-07-10 18:00] VITALS: BP 108/52
[2016-07-10] MEDS: CEPACOL LOZENGE PO PRN ×2 (20:54→23:48)
[2016-07-11 06:07] VITALS: BP 107/52
[2016-07-11] MEDS: NICOTINE 21MG/24HR 1 EA TRANSDERMAL TD SCH (09:00)
[2016-07-11] MEDS: FLUTICASONE PROP 0.05% NASAL SPRAY 16 GM (FLONASE) SCH ×2 (09:19→23:12)
[2016-07-11] MEDS: BACITRACIN OINT 30GM TOP SCH ×2 (09:19→23:11)
[2016-07-11] MEDS: DIVALPROEX 500MG *ER* TAB PO SCH ×2 (09:20→23:11)
[2016-07-11 18:00] VITALS: BP 115/58
[2016-07-12 06:00] VITALS: BP 109/56
[2016-07-12] MEDS: NICOTINE 21MG/24HR 1 EA TRANSDERMAL TD SCH ×2 (09:00→16:39)
[2016-07-12] MEDS: BACITRACIN OINT 30GM TOP SCH ×2 (09:00→21:26)
[2016-07-12] MEDS: FLUTICASONE PROP 0.05% NASAL SPRAY 16 GM (FLONASE) SCH ×2 (09:36→21:26)
[2016-07-12] MEDS: DIVALPROEX 500MG *ER* TAB PO SCH ×2 (09:36→21:26)
[2016-07-12 18:00] VITALS: BP 108/58
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
[2016-07-13 06:21] VITALS: BP 115/56
[2016-07-13] MEDS: BACITRACIN OINT 30GM TOP SCH ×2 (09:00→20:48)
[2016-07-13] MEDS: NICOTINE 21MG/24HR 1 EA TRANSDERMAL TD SCH (09:00)
[2016-07-13] MEDS: FLUTICASONE PROP 0.05% NASAL SPRAY 16 GM (FLONASE) SCH ×2 (09:25→20:48)
[2016-07-13] MEDS: DIVALPROEX 500MG *ER* TAB PO SCH ×2 (09:26→20:48)
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
[2016-07-13] MEDS: ACETAMINOPHEN TAB 650MG DOSE (2X325MG) PO PRN (20:48)
[2016-07-14 06:22] VITALS: BP 133/66
[2016-07-14] MEDS: BACITRACIN OINT 30GM TOP SCH ×2 (09:00→20:50)
[2016-07-14] MEDS: FLUTICASONE PROP 0.05% NASAL SPRAY 16 GM (FLONASE) SCH ×2 (09:00→20:49)
[2016-07-14] MEDS: DIVALPROEX 500MG *ER* TAB PO SCH ×2 (09:43→20:50)
[2016-07-14] MEDS: NICOTINE 21MG/24HR 1 EA TRANSDERMAL TD SCH (09:44)
--- NOTE | 2016-07-14 12:56 | IPNPDOC ---
[facility] Progress Note Progress Note DATE OF SERVICE: 07/14/16 HISTORY: Plastics Repairer met with patient today to evaluate treatment progress on inpatient unit. Patient is observed to be lying in bed but sits up and readily meets with commercial underwriter to discuss treatment progress. Patient indicates he has been attending some groups, engaging appropriately with peers and staff, remains visible on unit. Patient today communicates improved insight into his role in verbal disagreement with others, agrees to consider developing concrete strategies for improving his interactional style with others. Patient continues to feel that Depakote is helpful in stabilizing mood and reducing impulsivity, continues to deny interest in taking other medication. Patient remains aware he will discharge morning if able to devise a safe and comprehensive discharge plan with [facility]. Patient is aware meeting with [facility] will be arranged by salon coordinator either us afternoon or tomorrow morning. Patient denies anxiety, depression, audiovisual hallucinations , suicidal and homicidal ideation and denies urge to engage in self-injurious behavior. Patient denies further symptoms of anger, agitation, or irritability, is able to verbalize strategies for avoiding verbal altercations with other patients and individuals after his discharge. Patient states his sleep has been good and he states appetite, concentration, and energy level remain stable. Patient is aware salon coordinator is attempting to arrange meeting with [facility] to devise plan for patient's safe return [facility]. Of note: Patient apparently experienced a cardiac event in response to Invega injection. VITAL SIGNS: Please see below. CURRENT MEDICATIONS: See below. NEW TEST RESULTS: Laboratory data on admission: completed at [facility] with elevated MPV, UDS positive for cannabinoids. Depakote level on 07/02/16 < 3.0 Depakote level 07/11/16 - 78.7. MENTAL STATUS EXAMINATION: Patient is a 30-year old male, calm, engageable, appears forthright in responses. Patient presents with somewhat improved personal hygiene, appears stated age, walks with a steady gait, makes good eye contact. Speech: Normal rate, rhythm, volume, generally spontaneous Thought processes: Goal-directed, clear Rate of thoughts: Within normal limits Thought content: Generally logical, inquires regarding discharge but does not appear fixated Abstract reasoning: Limited Associations: Appears more intact Abnormal or psychotic thoughts: Denies hallucinations, delusions, paranoia, preoccupation with violence, homicidal or suicidal ideation, obsessions and compulsions. Judgment: Fair, expresses some improvement Insight: Fair, expresses some improvement Oriented to: Time, place, person and surroundings. Recent and Remote Memory: Adequate Attention Span and Concentration: Fair. Language: Normal. Fund of knowledge: Adequate Mood: "I'm fine." Patient indicates he is looking forward to discharge Affect: Constricted but brightens frequently, congruent with mood DIAGNOSES: Bipolar disorder, rule out cannabis use disorder rule out MDD, rule out schizophrenia, rule out schizoaffective disorder, rule out alcohol use disorder, rule out cannabis use disorder, rule out personality disorder ASSESSMENT: Patient continues to adjust to unit, is attending most groups, is not isolating in room, is visible. Patient is pleasant and cooperative, minimized symptoms which led to his current hospitalization less today and seems to be have awareness of the impact his behavior has on others. Patient has picked up his room, has showered, and personal hygiene appears improved. Patient indicates Depakote remains helpful and states he wants to continue to take Depakote ER 500 mg po BID, is aware he will need ongoing lab work for monitoring purposes, denies medication side effects. Patient has also taken hydroxyzine 50 mg PRN or anxiety/agitation with good effect reported, has not taken med 7 days. Patient currently refuses to take all other medications. Patient reports reduced mood lability and impulsivity. Patient continues to work with salon coordinator to solidify plan to return to community residence. Patient was again strongly encouraged to contemplate safety planning measures to reduce negative/aggressive interaction with channel marketing manager, also to consider alternative coping mechanisms, participating in substance abuse treatment, and need to follow house rules. Patient verbalizes agreement with the aforementioned needs, indicates he will continue to consider strategies in preparation for discharge and discharge planning meeting with [facility]. Patient denies suicidal and homicidal ideation and is able to engage in safety planning process, verbalizes awareness of how to access supportive services on the unit if needed. Will continue to monitor patient's response to medication and for side effects. Patient appears to have achieved resolution of risk for HI, is able to maintain behavioral control, reports mood stabilization and reduced impulsivity. MANAGEMENT PLAN: Continue Depakote ER 500 mg po BID, continue hydroxyzine 50 mg po q 6 hours as needed for anxiety/agitation. Maintain safety precautions Encourage patient to attend groups and participate in unit programming to develop coping strategies Engage patient in discharge planning process and arrange meeting with support system to evaluate safe discharge planning when appropriate, establish viability of plan for patient to safely return to community residence Patient to follow up with PCM upon discharge Vital Signs Vital Signs Date Time Temp Pulse Resp B/P Pulse Ox O2 Delivery O2 Flow Rate FiO2 07/14/16 09:31 Room Air 07/14/16 06:22 96.4 51 16 133/66 Current Medications Current Medications Acetaminophen (Tylenol) 650 mg Q6HP PRN PO HEADACHE or DISCOMFORT Last administered on 07/13/16 20:48; Start 07/02/16 at 12:30; Stop 08/01/16 at 12:29 Al Hydrox/Mg Hydrox/Simethicone (Mylanta) 30 ml Q4HP PRN PO HEARTBURN/ INDIGESTION; Start 07/02/16 at 12:30; Stop 08/01/16 at 12:29 Bacitracin (Bacitracin Oint) apply to Rt hand BID TOP Last administered on 07/12 21:26; Start 07/07/16 at 09:00; Stop 08/06/16 at 08:59 Cetylpyridinium Chloride (Cepacol) 1 karli Q2HP PRN PO SORE THROAT Last administered on 07/10/16 23:48; Start 07/09/16 at 19:00; Stop 08/08/16 at 18:59 Divalproex Sodium (Depakote Er) 500 mg BID PO Last administered on 07/14/16 09 :43; Start 07/07/16 at 21:00; Stop 08/06/16 at 20:59 Fluticasone Propionate (Flonase 0.05% Nasal [place]) 1 spray BID NA Last administered on 07/13/16 09:25; Start 07/09/16 at 21:00; Stop 08/08/16 at 20:59 Home Med (Med Rec Complete!) ASDIRECTED XX ; Start 07/02/16 at 09:00; Stop at 09:00; Status DC Hydroxyzine HCl (Atarax) 50 mg Q6HP PRN PO ANXIETY/AGITATION Last administered on 07/06/16 22:44; Start 07/05/16 at 09:45; Stop 08/04/16 at 09:44 Lorazepam (Ativan) 1 mg Q6HP PRN PO ANXIETY/AGITATION Last administered on 07/04 16:31; Start 07/02/16 at 12:30; Stop 07/06/16 at 12:35; Status DC Magnesium Hydroxide (Milk Of Magnesia) 30 ml DAILYPRN PRN PO CONSTIPATION; Start 07/02/16 at 12:30; Stop 08/01/16 at 12:29 Nicotine (Nicoderm Cq 21mg) 1 patch DAILY TD Last administered on 07/14/16 09: 44; Start 07/02/16 at 09:00; Stop 08/01/16 at 08:59 Allergies Coded Allergies: No Known Drug Allergy (Verified Allergy, Unknown, 09/21/12) Fernanda Hill Jul 14, 2016 12:56
[2016-07-14] MEDS: hydrOXYzine 50 MG TAB PO PRN (20:50)
[2016-07-15 06:34] VITALS: BP 112/51
[2016-07-15] MEDS: BACITRACIN OINT 30GM TOP SCH (09:00)
[2016-07-15] MEDS: FLUTICASONE PROP 0.05% NASAL SPRAY 16 GM (FLONASE) SCH (09:00)
[2016-07-15] MEDS: NICOTINE 21MG/24HR 1 EA TRANSDERMAL TD SCH (09:00)
[2016-07-15] MEDS: hydrOXYzine 50 MG TAB PO PRN (10:05)
[2016-07-15] MEDS: DIVALPROEX 500MG *ER* TAB PO SCH (10:05)
[2016-07-15] MEDS ORDERED: NICO21PAT TD (11:53)
[2016-07-15] MEDS ORDERED: HYDRO50TAB PO (12:13)
[2016-07-15] MEDS ORDERED: DEPA500T2 PO (12:13)
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
== END 2016-07-15 13:04 | disposition home or self-care (01) | DRG 753 ==
LOC: M ED 06:36 → M PSY 09:43
PROVIDERS: ADMIT Psychiatry & Neurology Psychiatry; ATTEND Psychiatry & Neurology Psychiatry
DX: F31.9 Bipolar disorder, unspecified (principal); I10 Essential (primary) hypertension; F60.9 Personality disorder, unspecified; F32.9 Major depressive disorder, single episode, unspecified; F12.90 Cannabis use, unspecified, uncomplicated; F17.210 Nicotine dependence, cigarettes, uncomplicated; Z79.899 Other long term (current) drug therapy